=== PATIENT | male | born 1965 | race African-American/Black ===

== ENCOUNTER → 2016-05-05 | Outpatient (CLI) | payer OTHER ==
[~2016-05-05] MED LIST: FLEXERIL10 MG PO; HYDRALAZINE HCL50 MG PO; ISORDIL40 MG PO; LISINOPRIL20 MG PO; METOPROLOL TART75 MG; PENICILLIN PO; TOPROL XL50 MG PO
--- NOTE | ~2016-05-05 | US37 ---
[facility] A Service [facility] RADIOLOGY TEXT RESULTS PATIENT: ZOILA QUILES LOCATION: [facility] : 67 UNIT #: [id number] AGE: [address]: CATE ANAND SEX: M ORDER DR: [id number] [facility] [address] [facility] [address] [place], [place] [address] [id number] O MR#: [id number] Acc #: [id number] NAME: ZOILA QUILES : 1965 SEX: M STUDY DATE/TIME: 05/05/2016 15:19 UNIT: [facility] ROOM: STUDY DESCRIPTION: US Carotid W/Doppler Bilateral Attending Physician: Cate Anand M.D. Referring Physician: Cate Anand M.D. Ordering Physician: Jace Anand M.D. Primary Care Physician: Matt Crowley M.D. MEDICAL IMAGING REPORT This report is preliminary unless electronic signature is present EXAM Carotid Doppler bilateral, 05/05/2016 HISTORY Retinal hemorrhage in left eye for 3 months, blurred vision for 3 months and confusion for 2 months. Syncope for 3 months. Hypertension and headache. Evaluate for carotid stenosis. FINDINGS Padilla-scale carotid artery images were obtained as well as Doppler waveform, spectral analysis and color flow Doppler imaging. The examination was interpreted according to NASCET criteria. There is no hemodynamically significant stenosis in either carotid artery. Peak systolic velocity in the right and left internal carotid arteries is 73 cm/sec and 81 cm/sec respectively. Antegrade blood flow is seen in both vertebral arteries. IMPRESSION No hemodynamically significant stenosis in either carotid artery. Dictated by... Zachary Briones M.D. THIS IS AN ELECTRONICALLY VERIFIED REPORT Zachary Briones M.D. at 05/07/2016 9:04 AM SOL/nino TD: 05/06/2016 02:57 JOB #: [id number] MEDICAL IMAGING REPORT [facility] A Service [facility] RADIOLOGY TEXT RESULTS PATIENT: ZOILA QUILES LOCATION: [facility] #: [id number] : 67 UNIT #: [id number] AGE: [address]: CATE ANAND SEX: M ORDER DR: ARTURO
== END | disposition home or self-care (01) ==
LOC: CECH 14:49
DX: H35.62 Retinal hemorrhage, left eye (principal)
CPT/HCPCS: 93880

== ENCOUNTER → 2016-05-31 | Outpatient (CLI) | payer OTHER | END | disposition home or self-care (01) | LOC: CECH 13:03 | DX: H35.62 Retinal hemorrhage, left eye (principal) | CPT/HCPCS: 93306 ==